=== PATIENT | male | born 1965 ===

== ENCOUNTER 2025-03-23 07:00 | Day surgery (SDC) | payer OTHER ==
[2025-03-16 12:50] VITALS: BP 142/78
[2025-03-16 15:32] LABS: BASO % 0.6 % (0.1-1.2); EOS # 0.19 (0.04-0.54); EOS % 1.9 % (0.7-7.0); LYMPH # 1.93 (1.18-3.74); LYMPH % 18.9 % (19.3-53.1); MEAN PLATELET VOLUME 9.70 fl (9.4-12.4); MONO # 0.61 (0.24-0.82); MONO % 6.0 % (4.7-12.5); NEUT # 7.40 (1.56-6.13); NEUT % 72.2 % (34.0-71.1); RED CELL DISTRIBUTION WIDTH 12.7 % (11.6-14.4)
[2025-03-16 15:55] LABS: INR 1.01
[~2025-03-23 07:00] MED LIST: METFORMIN HCL750 MG PO
[2025-03-23] MEDS ORDERED: HEMOSTATIC MATRIX 1 KIT KIT TOP ONE (10:45)
[2025-03-23] MEDS ORDERED: CEFTRIAXONE SODIUM 2,000 MG VIAL IV ONE (10:45)
[2025-03-23] MEDS ORDERED: METRONIDAZOLE/SODIUM CHLORIDE 500 MG/100 ML PIGGYBACK IV ONE (10:45)
[2025-03-23] MEDS ORDERED: DIBUCAINE 30 GM TUBE RECTAL ONE (11:00)
[2025-03-23] MEDS ORDERED: LIDOCAINE HCL 1% 20 ML VIAL IJ ONE (11:00)
[2025-03-23] MEDS ORDERED: HYDROGEN PEROXIDE 118 ML SOLUTION TOP ONE (11:00)
[2025-03-23] MEDS ORDERED: BUPIVACAINE HCL 30 ML VIAL IJ ONE (11:00)
[2025-03-23] MEDS ORDERED: POVIDONE-IODINE 118 ML BOTT TOP ONE (11:00)
[2025-03-23] MEDS ORDERED: TRAM1TAB98 PO (12:29)
[2025-03-23] MEDS ORDERED: NEURONTIN300 MG PO (12:29)
[2025-03-23] MEDS ORDERED: COLACE100 MG PO (12:29)
== END 2025-03-23 16:05 | disposition home or self-care (01) ==
LOC: CIR.AMB 07:00
PROVIDERS: ATTEND Surgery
DX: K60.321 Anal fistula, complex, initial (principal); K62.89 Other specified diseases of anus and rectum